=== PATIENT | male | born 1965 | race Caucasian/White ===

== ENCOUNTER 2017-04-19 04:42 | Emergency (ER) | payer OTHER ==
[~2017-04-19] VITALS: Ht 175.3 cm; Wt 81.8 kg
[~2017-04-19 04:42] MED LIST: BUSPAR10 MG PO; BUSPAR15 MG PO; FLUOXETINE HCL20 MG PO; LAMISIL250 MG PO; MOTRIN600 MG PO; PROZAC20 MG PO; SERTRALINE HCL50 MG PO; SYNTHROID75 MCG PO; TRAMADOL HCL50 MG PO; TRAZODONE HCL50 MG PO; XANAX1 MG PO
[2017-04-19 06:55] VITALS: BP 113/81
== END 2017-04-19 06:00 | disposition home or self-care (01) ==
LOC: EME 04:42
PROC: 0HQ0XZZ Repair Scalp Skin, External Approach (ICD-10-PCS; principal; 2017-04-19)
DX: S01.01XA Laceration without foreign body of scalp, initial encounter (principal); W19.XXXA Unspecified fall, initial encounter; F10.129 Alcohol abuse with intoxication, unspecified
CPT/HCPCS: 70450; 99281; 99284

== ENCOUNTER 2017-04-28 23:03 | Emergency (ER) | payer OTHER ==
[~2017-04-28] VITALS: Ht 375.9 cm; Wt 81.1 kg
[2017-04-29 00:09] VITALS: BP 127/65
== END 2017-04-29 00:17 | disposition home or self-care (01) ==
LOC: EME 23:03
DX: S01.01XD Laceration without foreign body of scalp, subsequent encounter (principal); Z48.02 Encounter for removal of sutures
CPT/HCPCS: 99281; 99283